=== PATIENT | female | born 1950 | race Caucasian/White ===

== ENCOUNTER 2019-04-08 13:34 | Emergency (ER) | payer MEDICARE, BC ==
--- NOTE | 2019-04-08 15:05 | EDM.PDOC ---
ED HPI GENERAL MEDICAL PROBLEM - General Chief Complaint: Neurological Problem Stated Complaint: FELT FAINT AFTER CLEANING MAYBE FUNNY HEART BEAT Time Seen by Provider: 04/08/19 14:50 Source of Information: Reports: Patient, Old Records, RN History Limitations: Reports: No Limitations - History of Present Illness INITIAL COMMENTS - FREE TEXT/NARRATIVE: 68 yo female here after a few spells today of near syncope. Says everything went black. No chest pains or palpitations. No nausea or diarrhea or melena. No hx of syncope. Was unaware of her heart beating abnormally. Feels fine now. Checked her BS when she got home and it was 150. Onset: Today Onset Date: 04/08/19 Duration: Other (seconds) Location: Reports: Head Quality: Reports: Other (light-headed) Severity: Moderate Improves with: Reports: Other (time) Worsens with: Reports: Other (unknown) Context: Reports: Other (see HPI) Associated Symptoms: Reports: Syncope (near syncope). Denies: Diaphoresis, Fever/Chills, Headaches Treatments MOLDING ASSOCIATE: Reports: Other (see below) (none) - Related Data Allergies Allergy/AdvReac Type Severity Reaction Status Date / Time hydrocodone Allergy Itching Verified 04/08/19 14:07 morphine Allergy Itching Verified 04/08/19 14:07 liraglutide AdvReac Nausea and Verified 04/08/19 14:07 Vomiting Home Meds: Home Meds Atenolol [Tenormin] 50 mg PO BID 07/01/18 [History] Enalapril/Hydrochlorothiazide [Enalapril-HCTZ 10-25 MG] 1 tab PO DAILY 07/01/18 [History] Insulin Glargine,Hum.Rec.Anlog [Basaglar Kwikpen U-100] 23 units SQ DAILY [History] Levothyroxine [Synthroid] 50 mcg PO DAILY 07/01/18 [History] [place]-3/DHA/Epa/Fish Oil [[place] 3 500 Softgel] 1 tab PO DAILY 07/01/18 [History] metFORMIN [Glucophage] 500 mg PO BID 07/01/18 [History] Cholecalciferol (Vitamin D3) [Vitamin D] 5,000 unit PO DAILY 04/08/19 [History] Dulaglutide [Trulicity] 0.75 mg SQ WEEKLY 04/08/19 [History] Simvastatin 20 mg PO DAILY 04/08/19 [History] Past Medical History HEENT History: Reports: Impaired Vision Cardiovascular History: Reports: High Cholesterol, Hypertension Gastrointestinal History: Reports: Hemorrhoids Genitourinary History: Reports: None 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: Reports: Fibroids, Musculoskeletal History: Reports: Arthritis Endocrine/Metabolic History: Reports: Diabetes, Type II, Hypothyroidism Dermatologic History: Reports: Psoriasis - Infectious Disease History Infectious Disease History: Reports: Chicken Pox, Measles - Past Surgical History Head Surgeries/Procedures: Reports: None Cardiovascular Surgical History: Reports: None GI Surgical History: Reports: Cholecystectomy, Colonoscopy Female Surgical History: Reports: Tubal Ligation Endocrine Surgical History: Reports: None Musculoskeletal Surgical History: Reports: Carpal Tunnel, Knee Replacement Other Musculoskeletal Surgeries/Procedures:: left knee Dermatological Surgical History: Reports: None Social & Family History - Tobacco Use Smoking Status *Q: Never Smoker Second Hand Smoke Exposure: No - Caffeine Use Caffeine Use: Reports: Coffee - Alcohol Use Days Per Week of Alcohol Use: 2 Number of Drinks Per Day: 2 Total Drinks Per Week: 4 - Recreational Drug Use Recreational Drug Use: No ED ROS GENERAL - Review of Systems Review Of Systems: See Below Constitutional: Reports: No Symptoms HEENT: Reports: No Symptoms Respiratory: Reports: No Symptoms Cardiovascular: Reports: Lightheadedness GI/Abdominal: Reports: No Symptoms : Reports: No Symptoms Musculoskeletal: Reports: No Symptoms Skin: Reports: No Symptoms Neurological: Reports: No Symptoms ED EXAM, NEURO - Physical Exam Exam: See Below Exam Limited By: No Limitations General Appearance: Alert, WD/WN, No Apparent Distress Eye Exam: Bilateral Eye: Normal Inspection Ears: Normal External Exam, Normal Canal, Hearing Grossly Normal, Normal TMs Nose: Normal Inspection, No Blood Throat/Mouth: Normal Inspection, Normal Lips, Normal Oropharynx, Normal Voice, No Airway Compromise Head Exam: Atraumatic, Normocephalic Neck: Normal Inspection Respiratory/Chest: No Respiratory Distress, Lungs Clear, Normal Breath Sounds, No Accessory Muscle Use Cardiovascular: Regular Rate, Rhythm, No Edema GI/Abdominal: Normal Bowel Sounds, Soft, Non-Tender, No Distention Neurological: Alert, Normal Mood/Affect, CN II-XII Intact, No Motor/Sensory Deficits, Oriented x 3 Back Exam: Normal Inspection. No: CVA Tenderness (R), CVA Tenderness (L) Extremities: Normal Inspection, Normal Range of Motion, Non-Tender, No Pedal Edema Psychiatric: Normal Affect, Normal Mood Skin Exam: Warm, Dry, Intact, Normal Color, No Rash Course - Vital Signs Last Recorded V/S: Last Vital Signs Temp 35.5 C 04/08/19 14:12 Pulse 63 04/08/19 14:12 Resp 11 L 04/08/19 14:12 BP 166/68 H 04/08/19 14:12 Pulse Ox 98 04/08/19 14:12 Orthostatic Blood Pressure [ 158/74 Standing] Orthostatic Blood Pressure [ 170/77 Sitting] Orthostatic Blood Pressure [ 160/67 Supine] - Orders/Labs/Meds Orders: Active Orders 24 hr Category Date Time Status Cardiac Monitoring [RC] .As Directed Care 04/08/19 14:51 Active Orthostatic Vital Signs [RC] ASDIRECTED Care 04/08/19 14:51 Active Labs: Laboratory Tests 04/08/19 04/08/19 04/08/19 Range/Units 14:30 15:06 15:06 WBC 6.1 (4.5-11.0) K/uL RBC 4.79 (3.30-5.50) M/uL Hgb 13.2 (12.0-15.0) g/dL Hct 40.8 (36.0-48.0) % MCV 85 (80-98) fL MCH 28 (27-31) pg MCHC 32 (32-36) % Plt Count 201 (150-400) K/uL Sodium 144 (140-148) mmol/L Potassium 3.1 L (3.6-5.2) mmol/L Chloride 103 (100-108) mmol/L Carbon Dioxide 30 (21-32) mmol/L Anion Gap 14.1 H (5.0-14.0) mmol/L BUN 22 H (7-18) mg/dL Creatinine 0.8 (0.6-1.0) mg/dL Est Cr Clr Drug Dosing 59.73 mL/min Estimated GFR (MDRD) > 60 (>60) Glucose 127 H (74-106) mg/dL Calcium 10.1 (8.5-10.1) mg/dL Magnesium 1.6 L (1.8-2.4) mg/dL Troponin I < 0.017 (0.000-0.056) ng/mL Meds: Medications Discontinued Medications Generic Name Dose Route Start Last Admin Trade Name Angela PRN Reason Stop Dose Admin Potassium Chloride 40 meq 04/08/19 15:42 04/08/19 15:48 Potassium Chloride PO 04/08/19 15:43 40 meq ONETIME ONE Administration Departure - Departure Time of Disposition: 16:11 Disposition: Home, Self-Care 01 Condition: Fair Clinical Impression: Hypokalemia, Hypomagnesemia, Mild dehydration - Discharge Information *PRESCRIPTION DRUG MONITORING PROGRAM REVIEWED*: No *COPY OF PRESCRIPTION DRUG MONITORING REPORT IN PATIENT MASOOD: No Instructions: Hypokalemia Referrals: Ke Goff MD [Primary Care Provider] - Forms: ED Department Discharge Additional Instructions: Drink enough fluids so your urine is light yellow in color. Take potassium and magnesium as directed. Recheck with you provider early next week, return if worse. - My Orders Last 24 Hours: My Active Orders 04/08/19 14:51 Cardiac Monitoring [RC] .As Directed Orthostatic Vital Signs [RC] ASDIRECTED - Assessment/Plan Last 24 Hours: My Active Orders 04/08/19 14:51 Cardiac Monitoring [RC] .As Directed Orthostatic Vital Signs [RC] ASDIRECTED
[2019-04-08] MEDS ORDERED: Potassium Chloride 10 MEQ Cap.ER PO ONE (15:42)
== END 2019-04-08 16:20 | disposition home or self-care (01) ==
LOC: JP.ED 13:34
DX: E87.6 Hypokalemia (principal); E83.42 Hypomagnesemia; E86.0 Dehydration; I10 Essential (primary) hypertension; E11.9 Type 2 diabetes mellitus without complications; E03.9 Hypothyroidism, unspecified; Z88.5 Allergy status to narcotic agent; Z88.8 Allergy status to other drugs, medicaments and biological substances; Z79.4 Long term (current) use of insulin; Z79.899 Other long term (current) drug therapy
CPT/HCPCS: 36415; 80048; 83735; 84484; 85027; 99283; A9270

== ENCOUNTER 2021-09-07 06:32 | Day surgery (SDC) | payer MEDICARE ==
[2021-09-07] MEDS ORDERED: Sodium Chloride 0.9% 10 ML Syringe FLUSH PRN (06:45)
== END 2021-09-07 08:25 | disposition home or self-care (01) ==
LOC: JP.SDS 06:32
PROVIDERS: ATTEND Ophthalmology
DX: E11.36 Type 2 diabetes mellitus with diabetic cataract (principal); H25.11 Age-related nuclear cataract, right eye; I10 Essential (primary) hypertension
CPT/HCPCS: 66984; V2632

== ENCOUNTER 2021-09-21 07:42 | Day surgery (SDC) | payer MEDICARE ==
[2021-09-21] MEDS ORDERED: Sodium Chloride 0.9% 10 ML Syringe FLUSH PRN (07:45)
== END 2021-09-21 09:05 | disposition home or self-care (01) ==
LOC: JP.SDS 07:42
PROVIDERS: ATTEND Ophthalmology
DX: E10.36 Type 1 diabetes mellitus with diabetic cataract (principal); H25.12 Age-related nuclear cataract, left eye; I10 Essential (primary) hypertension; K21.9 Gastro-esophageal reflux disease without esophagitis; E03.9 Hypothyroidism, unspecified
CPT/HCPCS: V2632